=== PATIENT | female | born 1970 | race Caucasian/White ===

== ENCOUNTER → 2016-08-15 | Outpatient (CLI) | payer OTHER ==
[~2016-08-15] MED LIST: NORE-44 PO
[2016-08-15 15:25] LABS: AUTOMATED NEUTROPHIL # 4.5 TH/MM3 (1.8-7.7); BASOPHIL # 0.1 TH/MM3 (0-0.2); BASOPHIL % 0.9 % (0.0-2.0); EOSINOPHIL # 0.1 TH/MM3 (0-0.4); EOSINOPHIL % 0.7 % (0.0-4.0); HEMATOCRIT 39.5 % (35.0-46.0); HEMO FLAGS DIFF FINAL; LYMPH % 37.8 % (9.0-44.0); LYMPHOCYTE # 3.1 TH/MM3 (1.0-4.8); MEAN CELL VOLUME 85.5 FL (80.0-100.0); MEAN CORPUSCULAR HEMOGLOBIN 29.3 PG (27.0-34.0); MEAN CORPUSCULAR HGB CONC 34.2 % (32.0-36.0); NEUT % 54.6 % (16.0-70.0); PLATELET COUNT 301 TH/MM3 (150-450); RED BLOOD COUNT 4.61 MIL/MM3 (4.00-5.30); RED CELL DISTRIBUTION WIDTH 12.9 % (11.6-17.2); WHITE BLOOD COUNT 8.3 TH/MM3 (4.0-11.0)
[2016-08-15 15:31] LABS: BACTERIA, URINE RARE /hpf; BLOOD, URINE NEG (NEG); COMMENT (UR) CULT NOT INDICATED; CULTURE IF INDICATED CULT NOT INDICATED; GLUCOSE,URINE NEG (NEG); KETONE, URINE NEG (NEG); NITRITE,URINE NEG (NEG); PH, URINE 5.5 (5.0-8.5); SQUAMOUS EPITHELIAL CELL URINE 1 /hpf (0-5); URINE COLOR YELLOW (YELLW/STRAW)
[2016-08-15 15:50] LABS: BETA HCG QUANT LESS THAN 1 MIU/ML (0-5)
--- NOTE | 2016-08-16 11:42 | EKG ---
Date Performed: 08/15/2016 Time Performed: 15:12:25 PTAGE: 46 years EKG: Normal Sinus rhythm Probably normal EKG BORDERLINE ECG NO PREVIOUS TRACING DOCTOR: Uche Simpson Interpretating Date/Time 08/16/2016 11:41:12
== END ==
LOC: CPRE 14:45
PROVIDERS: ATTEND Obstetrics & Gynecology
DX: Z01.810 Encounter for preprocedural cardiovascular examination (principal); Z01.812 Encounter for preprocedural laboratory examination; N92.0 Excessive and frequent menstruation with regular cycle; N85.00 Endometrial hyperplasia, unspecified; R94.31 Abnormal electrocardiogram [ECG] [EKG]
CPT/HCPCS: 36415; 81001; 84702; 85025; 93005

== ENCOUNTER → 2016-08-17 | Day surgery (SDC) | payer OTHER ==
--- NOTE | 2016-08-16 17:06 | MH ---
cc: MARILIA MORALEZ DATE OF ADMISSION 08/17/2016 ADMITTING DIAGNOSIS Menorrhagia with probable polyps and uterine fibroid. HISTORY OF PRESENT ILLNESS The patient is a 46-year-old white female para 3-0-1-3 who returned for a visit on 07/15/2016 reporting heavy breakthrough bleeding for two weeks passing large clots with pelvic pressure. She normally does well on OCPs. Her pelvic ultrasound from 07/22/2016 showed uterus that measured 9.3 cm, a 1.2 cm fibroid left fundus, endometrium thickened to 1.5 cm with possible polyps. Ovaries were normal. She is now admitted for hysteroscopy D&C. PAST MEDICAL HISTORY/PAST SURGICAL HISTORY 1. for breech in 2005 2. Adenoid surgery age [age]. MEDICATIONS [id number] ALLERGIES None. TRANSFUSIONS None. OBSTETRICAL HISTORY Two vaginal deliveries, one C section, one spontaneous . SOCIAL HISTORY She is . She is a homemaker. Alcohol, tobacco and drugs are none. PHYSICAL EXAMINATION GENERAL: A well-nourished, well-developed white female VITAL SIGNS: Stable. HEENT: Exam is normal. CHEST: Clear HEART: Regular rate BREASTS: Symmetrical. ABDOMEN: Benign. PELVIC: Normal external genitalia and BUS, vagina is normal. Cervix normal. Uterus is normal size, shape anterior, no adnexal masses. ASSESSMENT As above. PLAN She is now admitted for hysteroscopy D&C. While in the office, I explained the procedures, the risks, benefits and complications explained and accepted. MD KAL Montoya/ /4:51 PM /4:58 PM
[~2016-08-17] VITALS: Ht 161.3 cm; Wt 62.2 kg
[~2016-08-17] MED LIST changes: +ACETAMINOPHEN 1000 MG/100 ML VIAL IV PRN; +APREPITANT 40 MG CAP ONE; +CHLORHEXIDINE GLUCONATE 2 % 1 PACK (2 CLOTHS) TOPICAL PRN; +DO NOT ADM ANY ANTICOAGULANT DRUGS PRN; +INSULIN HUMAN REGULAR 1,000 UNITS/10 ML VIAL SQ PRN; +KETOROLAC TROMETHAMINE 60 MG/2 ML (IM) VIAL IM ONE; +LACTATED RINGER'S 1000 ML IV PRN; +METOCLOPRAMIDE HCL 10 MG/2 ML VIAL IV PRN; +METOPROLOL TARTRATE 25 MG TAB PO PRN; +ONDANSETRON HCL 4 MG/2 ML VIAL IV PUSH ONE; +POVIDONE IODINE 5% (ANTISEPSIS KIT) 4 APPLICATIONS EACH NARE PRN; +PROPOFOL 200 MG/20 ML AMP IV ONE; +SODIUM CHLORID 0.9% 500 ML IV PRN; +ceFAZolin 1,000 MG/NS 100 ML IV SCH; +fentaNYL CITRATE 250 MCG/5 ML AMP ONE
[2016-08-17 06:01] VITALS: BP 146/75; PULSE 73; RESP 20; TEMP 99; O2SAT 100
[2016-08-17 09:02] VITALS: BP 112/65; PULSE 62; RESP 18; TEMP 98.1; O2SAT 99
--- NOTE | 2016-08-17 09:20 | MP ---
cc: MARILIA MORALEZ DATE OF SURGERY 08/17/2016. PREOPERATIVE DIAGNOSIS Menorrhagia with uterine fibroids and endometrial polyp. POSTOPERATIVE DIAGNOSIS Menorrhagia with uterine fibroids and endometrial polyp. PROCEDURE Hysteroscopy and D&C. SURGEON Marilia Moralez MD ANESTHESIA General LMA. ESTIMATED BLOOD LOSS Less than 25 cc. FLUIDS About 0.5 liter crystalloid. OBJECTIVE FINDINGS Following the induction of adequate general LMA anesthesia, the patient was prepped and draped supine on the operating room table in the dorsal lithotomy position in sterile fashion with the bladder being drained via in and out catheterization. Exam under anesthesia revealed a normal sized and shaped anterior uterus with no adnexal masses. A heavy weighted speculum was placed in the posterior fornix of the vagina, the anterior lip of the cervix grasped with a single-tooth tenaculum. The cervix and uterus sounded to 8 cm. The cervix was dilated to a #18 Hanks dilator. The hysteroscope was passed, revealed normal endocervix, the endometrium with an anterior fundal polyp. The scope was now removed. Endocervical curettings were obtained with a small serrated curette, the endometrium with a small, sharp curet and polyp forceps passed to picker tender the polyps. The scope was now passed again to ensure the cavity was clean. The cervical tenaculum site was sutured with 3-0 chromic for hemostasis. All instruments were removed. All counts were correct. The patient's legs were taken down from the stirrups. She was awakened and taken to the recovery room in good condition. Marilia Moralez MD JAW/SSB /7:49 AM /9:17 AM
== END | disposition home or self-care (01) ==
LOC: HSDC 05:12
PROVIDERS: ATTEND Obstetrics & Gynecology
DX: N92.0 Excessive and frequent menstruation with regular cycle (principal); N84.0 Polyp of corpus uteri; D25.9 Leiomyoma of uterus, unspecified
CPT/HCPCS: 00952; 58558; 88305; J0131; J0690; J1885; J2405; J3010; J7120; J8501

== ENCOUNTER → 2016-11-14 | Outpatient (CLI) | payer OTHER ==
[~2016-11-14] MED LIST changes: -ACETAMINOPHEN 1000 MG/100 ML VIAL IV PRN; -APREPITANT 40 MG CAP ONE; +ASPI81TA5 PO; -CHLORHEXIDINE GLUCONATE 2 % 1 PACK (2 CLOTHS) TOPICAL PRN; -DO NOT ADM ANY ANTICOAGULANT DRUGS PRN; +FIBE625T10 PO; -INSULIN HUMAN REGULAR 1,000 UNITS/10 ML VIAL SQ PRN; -KETOROLAC TROMETHAMINE 60 MG/2 ML (IM) VIAL IM ONE; -LACTATED RINGER'S 1000 ML IV PRN; -METOCLOPRAMIDE HCL 10 MG/2 ML VIAL IV PRN; -METOPROLOL TARTRATE 25 MG TAB PO PRN; +OMEG12007 PO; -ONDANSETRON HCL 4 MG/2 ML VIAL IV PUSH ONE; -POVIDONE IODINE 5% (ANTISEPSIS KIT) 4 APPLICATIONS EACH NARE PRN; -PROPOFOL 200 MG/20 ML AMP IV ONE; +REDCAP9 PO; -SODIUM CHLORID 0.9% 500 ML IV PRN; -ceFAZolin 1,000 MG/NS 100 ML IV SCH; -fentaNYL CITRATE 250 MCG/5 ML AMP ONE
[2016-11-14 14:08] LABS: AUTOMATED NEUTROPHIL # 4.8 TH/MM3 (1.8-7.7); BASOPHIL % 0.5 % (0.0-2.0); EOSINOPHIL % 0.3 % (0.0-4.0); HEMATOCRIT 36.4 % (35.0-46.0); HEMO FLAGS DIFF FINAL; LYMPH % 32.3 % (9.0-44.0); LYMPHOCYTE # 2.5 TH/MM3 (1.0-4.8); MEAN CORPUSCULAR HEMOGLOBIN 28.4 PG (27.0-34.0); MEAN CORPUSCULAR HGB CONC 33.8 % (32.0-36.0); MONO % 4.8 % (0.0-8.0); NEUT % 62.1 % (16.0-70.0); PLATELET COUNT 287 TH/MM3 (150-450); RED BLOOD COUNT 4.34 MIL/MM3 (4.00-5.30); RED CELL DISTRIBUTION WIDTH 13.2 % (11.6-17.2); WHITE BLOOD COUNT 7.7 TH/MM3 (4.0-11.0)
[2016-11-14 14:39] LABS: BETA HCG QUANT LESS THAN 1 MIU/ML (0-5)
[2016-11-14 17:32] LABS: BLOOD, URINE NEG (NEG); GLUCOSE,URINE NEG (NEG); KETONE, URINE 40 mg/dL (NEG); NITRITE,URINE NEG (NEG); PH, URINE 5.5 (5.0-8.5); SQUAMOUS EPITHELIAL CELL URINE 1 /hpf (0-5); URINE COLOR YELLOW (YELLW/STRAW)
[2016-11-14 17:34] LABS: COMMENT (UR) CULT NOT INDICATED; CULTURE IF INDICATED CULT NOT INDICATED
== END ==
LOC: CPRE 12:47
PROVIDERS: ATTEND Obstetrics & Gynecology
DX: Z01.812 Encounter for preprocedural laboratory examination (principal); D25.0 Submucous leiomyoma of uterus; N92.1 Excessive and frequent menstruation with irregular cycle; N94.6 Dysmenorrhea, unspecified
CPT/HCPCS: 36415; 81001; 84702; 85025

== ENCOUNTER 2016-11-16 10:54 | Observation (INO) | payer OTHER ==
[~2016-11-16] VITALS: Ht 160 cm; Wt 60.2 kg
[~2016-11-16 10:54] MED LIST changes: -ASPI81TA5 PO
[2016-11-16] MEDS ORDERED: ASPI81TA5 PO (11:30)
[2016-11-16] MEDS ORDERED: ceFAZolin INJ 1,000 MG VIAL ONE (11:49)
[2016-11-16] MEDS ORDERED: ACETAMINOPHEN 1000 MG/100 ML 100 ML IV ONE (11:49)
[2016-11-16] MEDS ORDERED: SODIUM CHLORIDE 0.9% INJ 100 ML ONE (11:50)
[2016-11-16] MEDS ORDERED: ACETAMINOPHEN 1000 MG/100 ML VIAL IV ONE (12:00)
[2016-11-16] MEDS ORDERED: SODIUM CHLORIDE 0.9% 20 ML VIAL IV ONE (12:00)
[2016-11-16] MEDS ORDERED: LACTATED RINGER'S 1000 ML INJ 1,000 ML IV ONE (12:00)
[2016-11-16] MEDS ORDERED: STERILE WATER FOR INJECTION 20 ML VIAL IV ONE (12:00)
[2016-11-16] MEDS ORDERED: INSULIN HUMAN REGULAR 1,000 UNITS/10 ML VIAL SQ PRN (12:00)
[2016-11-16] MEDS ORDERED: GLYCOPYRROLATE 1 MG/5 ML SYRINGE IV PUSH ONE (12:00)
[2016-11-16] MEDS ORDERED: LIDOCAINE HCL 1% PF 5 ML AMPULE OTHER ONE (12:00)
[2016-11-16] MEDS ORDERED: ROCURONIUM INJ 50 MG/5 ML SYRINGE IV PUSH ONE (12:00)
[2016-11-16] MEDS ORDERED: PROPOFOL 200 MG/20 ML AMP IV ONE (12:00)
[2016-11-16] MEDS ORDERED: POVIDONE IODINE 5% (ANTISEPSIS KIT) 4 APPLICATIONS EACH NARE PRN (12:00)
[2016-11-16] MEDS ORDERED: METOPROLOL TARTRATE 25 MG TAB PO PRN (12:00)
[2016-11-16] MEDS ORDERED: ONDANSETRON HCL 4 MG/2 ML VIAL IV PUSH ONE (12:00)
[2016-11-16] MEDS ORDERED: LACTATED RINGER'S 1000 ML IV PRN (12:00)
[2016-11-16] MEDS ORDERED: SODIUM CHLORID 0.9% 500 ML IV PRN (12:00)
[2016-11-16] MEDS ORDERED: CHLORHEXIDINE GLUCONATE 2 % 1 PACK (2 CLOTHS) TOPICAL PRN (12:00)
[2016-11-16] MEDS ORDERED: KETOROLAC TROMETHAMINE 30 MG/ML (IVP) VIAL IV PUSH ONE (12:00)
[2016-11-16] MEDS ORDERED: ceFAZolin 1,000 MG/NS 100 ML IV ONE ×2 (12:00)
[2016-11-16] MEDS ORDERED: NEOSTIGMINE 3 MG/3 ML SYR IV ONE (12:00)
[2016-11-16] MEDS ORDERED: MIDAZOLAM HCL 2 MG/2 ML VIAL ONE (12:33)
[2016-11-16] MEDS ORDERED: FAMOTIDINE 20 MG/2 ML VIAL ONE (12:34)
[2016-11-16] MEDS ORDERED: DEXAMETHASONE SOD PHOS 4 MG/ML VIAL ONE (12:34)
[2016-11-16] MEDS ORDERED: MIDAZOLAM HCL 2 MG/2 ML VIAL IV ONE (12:45)
[2016-11-16] MEDS ORDERED: APREPITANT 40 MG CAP PO ONE (12:45)
[2016-11-16] MEDS ORDERED: FAMOTIDINE 20 MG/2 ML VIAL IV ONE (12:45)
[2016-11-16] MEDS ORDERED: DEXAMETHASONE SOD PHOS 4 MG/ML VIAL IV ONE (12:45)
[2016-11-16] MEDS ORDERED: BUPIVACAINE LIPOSOME PF 1.3% 20 ML VIAL ONE (12:51)
[2016-11-16] MEDS ORDERED: D5-1/2 NS + KCL 20 MEQ INJ 1,000 ML IV SCH (14:16)
[2016-11-16] MEDS ORDERED: diphenhydrAMINE HCL 25 MG CAP PO PRN (14:30)
[2016-11-16] MEDS ORDERED: ZOLPIDEM TARTRATE 5 MG TAB PO PRN (14:30)
[2016-11-16] MEDS ORDERED: SODIUM CHLORIDE 0.9% FLUSH 5 ML FLUSH FLUSH PRN (14:30)
[2016-11-16] MEDS ORDERED: ONDANSETRON HCL 4 MG/2 ML VIAL IV PUSH PRN (14:30)
[2016-11-16] MEDS ORDERED: HYDROmorphone HCL PF 1 MG/ML VIAL IV PUSH PRN (14:30)
[2016-11-16] MEDS ORDERED: PROMETHAZINE HCL 25 MG TAB PO PRN (14:30)
[2016-11-16] MEDS ORDERED: PROMETHAZINE INJ 25 MG/ML VIAL IM PRN (14:30)
[2016-11-16] MEDS ORDERED: ONDANSETRON ODT 4 MG TAB PO PRN (14:30)
[2016-11-16] MEDS ORDERED: DO NOT ADM ANY ANTICOAGULANT DRUGS PRN (15:30)
[2016-11-16 16:00] VITALS: BP 95/60; PULSE 64; RESP 16; TEMP 97.8; O2SAT 98
[2016-11-16] MEDS ORDERED: ONDANSETRON INJ 8 MG in DEXTROSE 5% IN WATER INJ 50 ML IV PUSH PRN ×2 (16:00)
[2016-11-16] MEDS: KETOROLAC TROMETHAMINE 30 MG/ML (IVP) VIAL IVP SCH ×2 (16:24→21:52)
[2016-11-16] MEDS: ACETAMINOPHEN 1000 MG/100 ML VIAL IV SCH (16:24)
[2016-11-16 17:22] LABS: HEMATOCRIT 35.1 % (35.0-46.0); REVIEW FLAG FINAL
[2016-11-16 20:00] VITALS: BP 100/64; PULSE 67; RESP 20; TEMP 97.6; O2SAT 100
[2016-11-16] MEDS ORDERED: SODIUM CHLORIDE 0.9% FLUSH 5 ML FLUSH FLUSH SCH (21:00)
[2016-11-16] MEDS: DOCUSATE SODIUM 100 MG CAP PO SCH (21:51)
[2016-11-17] MEDS: ACETAMINOPHEN 1000 MG/100 ML VIAL IV SCH ×2 (00:13→08:45)
[2016-11-17 00:15] VITALS: BP 99/69; PULSE 54; RESP 18; TEMP 98.4; O2SAT 100
[2016-11-17 04:45] VITALS: BP 95/52; PULSE 54; RESP 16; TEMP 98.3; O2SAT 100; O2SAT 98
[2016-11-17] MEDS: KETOROLAC TROMETHAMINE 30 MG/ML (IVP) VIAL IVP SCH (04:48)
[2016-11-17 05:54] LABS: AUTOMATED NEUTROPHIL # 7.9 TH/MM3 (1.8-7.7); BASOPHIL % 0.1 % (0.0-2.0); HEMO FLAGS DIFF FINAL; LYMPH % 13.6 % (9.0-44.0); LYMPHOCYTE # 1.4 TH/MM3 (1.0-4.8); MEAN CELL VOLUME 84.4 FL (80.0-100.0); MEAN CORPUSCULAR HEMOGLOBIN 28.9 PG (27.0-34.0); MEAN CORPUSCULAR HGB CONC 34.3 % (32.0-36.0); MONO % 6.5 % (0.0-8.0); NEUT % 79.8 % (16.0-70.0); PLATELET COUNT 238 TH/MM3 (150-450); RED BLOOD COUNT 3.91 MIL/MM3 (4.00-5.30); RED CELL DISTRIBUTION WIDTH 12.9 % (11.6-17.2); WHITE BLOOD COUNT 9.9 TH/MM3 (4.0-11.0)
[2016-11-17 06:16] LABS: BICARBONATE 24.3 MEQ/L (21.0-32.0); POTASSIUM 4.1 MEQ/L (3.5-5.1)
--- NOTE | 2016-11-17 06:34 | HHI.DCPOC ---
Discharge Care Plan Report Symptoms to Your Doctor -Temperature above 100.5 degrees -Redness, of incision or excessive or foul smelling drainage -Unusual pain or calf pain -Increased vaginal bleeding -Painful or difficulty urinating -Feelings of extreme sadness or anxiety after 2 weeks Goals to Promote Your Health * To prevent worsening of your condition and complications * To maintain your health at the optimal level Directions to Meet Your Goals Take your medications as prescribed Follow your dietary instruction Follow activity as directed Ensure plenty of rest for recovery Drink fluids for hydration Keep your appointments as scheduled Take your immunizations and boosters as scheduled If your symptoms worsen call your PCP, if no PCP go to Urgent Care Center or Emergency Room Smoking is Dangerous to Your Health. Avoid second hand smoke Call the 24-hour crisis hotline for domestic abuse at Abimael Recinos MD Nov 17, 2016 06:34
--- NOTE | 2016-11-17 06:41 | MP ---
cc: MARILIA MORALEZ DATE OF SURGERY 11/16/2016 PREOPERATIVE DIAGNOSIS Menorrhagia, dysmenorrhea with submucosal fibroids. POSTOPERATIVE DIAGNOSIS Menorrhagia, dysmenorrhea with submucosal fibroids. PROCEDURE Laparoscopy with a LASH, bilateral salpingectomy. ANESTHESIA General ET SURGEON Marilia Moralez MD BACKSIDE GRINDER Estefanía Quinn ESTIMATED BLOOD LOSS 50 cc FLUIDS One liter crystalloid OBJECTIVE FINDINGS Following induction of adequate general endotracheal anesthesia, the patient was prepped and draped supine on the operating table in the dorsolithotomy position in the usual sterile fashion with the bladder being drained via Dwyer catheterization. The abdomen was opened through a 2-cm curving infraumbilical incision using a knife to cut down through skin to the fascia. Fascia opened transversely. Rectus muscle split in the midline and the peritoneum sharply. Palpation was normal and the GelPort was placed, laparoscope inserted. A five port was placed in the left lower quadrant and an AirSeal port right lower quadrant. The uterus was about 10/12 weeks' size. The tubes and ovaries were normal, cul-de-sacs were clear. Liver edge was normal. Working first on the left, a harmonic scalpel was used to take the left mesosalpinx, left round ligament, left broad ligament, left-sided bladder flap and left uterine vessels and the same on the right. The harmonic scalpel was now used to amputate the fundus from the cervix. A pouch was inserted and the uterus and tubes were placed in the pouch and removed through the GelPort site with no spillage of tissue. Irrigation now performed. One are of bleeding on the cervix was controlled with the Harmonic scalpel. The bladder was filled with saline to checked for leaks, there were none. The ureters were inspected with good peristalsis. The operative sites were checked with low-pressure for no bleeding. The operative site was coated with Evicel. The GelPort was now removed and the peritoneum closed with a running stitch of 2-0 Vicryl, the fascia with a running locking stitch of 0 Vicryl corner to midline and tied, subcu closed with running 3-0 Vicryl, the skin with subcuticular 3-0 Monocryl. The scope was now reinserted through the lower ports and used to inspect the GelPort site which was well closed with no bleeding or entrapment. The pelvis was inspected, there was no bleeding. The scope was removed, gas was allowed to escape and the small wounds closed with 3-0 Monocryl subcuticular. Dermabond applied. All counts correct and the patient was awakened and taken to the recovery room in good position. MD KAL Montoya/KAROL /2:19 PM /6:28 AM
[2016-11-17 07:45] VITALS: BP 100/61; PULSE 57; RESP 17; TEMP 98.9
[2016-11-17] MEDS: DOCUSATE SODIUM 100 MG CAP PO SCH (08:45)
[2016-11-17] MEDS ORDERED: INFLUENZA VIRUS VACCINE (QUADRIVALENT) 0.5 ML SYR IM ONE (09:30)
[2016-11-18] MEDS ORDERED: INFLUENZA VIRUS VACCINE (QUADRIVALENT) 0.5 ML SYR IM ONE (10:00)
[2016-11-18] MEDS ORDERED: PNEUMOCOCCAL POLYVALENT INJ 25 MCG/0.5 ML SYR IM ONE (10:00)
== END 2016-11-17 09:48 | disposition home or self-care (01) ==
LOC: HSDC 10:54 → HSDI 14:18 → H1EA 15:32
PROVIDERS: ADMIT Obstetrics & Gynecology; ATTEND Obstetrics & Gynecology
DX: D25.0 Submucous leiomyoma of uterus (principal); N92.1 Excessive and frequent menstruation with irregular cycle; N94.6 Dysmenorrhea, unspecified; Z23 Encounter for immunization
CPT/HCPCS: 00840; 58542; 64488; 80048; 85014; 85018; 85025; 86850; 86900; 86901; 88307; 94150; 96361; 96374; 96375; 96376; C9290; G0378; J0131; J0690; J1100; J1885; J2250; J2405; J2710; J3010; J3480; J7120; Q2038; 90686